=== PATIENT | female | born 1950 | race Caucasian/White ===

== ENCOUNTER 2016-12-12 06:06 | Day surgery (SDC) | payer MEDICARE, OTHER ==
--- NOTE | ~2016-12-12 | EGD ---
EGD REPORT [facility] [place] [address] [place] [id number] NAME: DAVID ALBERT : [birth year] STATUS : REG [facility]#: [id number] AGE: 66 ADM/REG DATE : 12/12/16 MR#: [id number] REPORT SERV DATE: 12/12/16 DICTATED BY: DATE: REPORT STATUS : Draft TRANSCRIBED BY: [employer] DATE: 12/12/16 [facility] Patient Name: David Albert Date of : 1950 Attending MD: EFRAIN DE LUNA MD Procedure Date No Time: 12/12/2016 Procedure: Upper GI endoscopy Indications: Dysphagia Referring MD: MACHO DEL RIO MD Medicines: Monitored Anesthesia Care Complications: No immediate complications. Procedure: Pre-Anesthesia Assessment: - ASA Grade Assessment: III - A patient with severe systemic disease. After obtaining informed consent, the endoscope was passed under direct vision. Throughout the procedure, the patient's blood pressure, pulse, and oxygen saturations were monitored continuously. The GIF [id number] was introduced through the mouth, and advanced to the third part of duodenum. The upper GI endoscopy was accomplished without difficulty. The patient tolerated the procedure well. 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 LA Grade B (one or more mucosal breaks greater than 5 mm, not extending between the tops of two mucosal folds) esophagitis was found at the gastroesophageal junction. The Z-line was irregular and was found 38 cm from the incisors. Biopsies were taken with a cold forceps for histology. A benign-appearing, intrinsic mild stenosis measuring less than one cm (in length) was found 38 cm from the incisors and was traversed. Biopsies were taken with a cold forceps for histology. A guidewire was placed and the scope was withdrawn. Dilation was performed with a Savary dilator with no resistance at 54 Fr. A 3 cm hiatus hernia was present. Localized moderate inflammation characterized by erosions was found in the gastric antrum. Biopsies were taken with a cold forceps for Helicobacter pylori testing. No other significant abnormalities were identified in a careful examination of the stomach. There is no endoscopic evidence of ulceration or varices in the entire examined stomach. The examined duodenum was normal. EGD REPORT [address] [place]. [address] NAME: DAVID ALBERT : [birth year] [place]US [place] [facility] [place] [id number] AGE: 66 ADM/REG DATE : 12/12/16 MR#: [id number] REPORT SERV DATE: 12/12/16 DICTATED BY: DATE: REPORT STATUS : Draft TRANSCRIBED BY: [employer] DATE: 12/12/16 There is no endoscopic evidence of inflammation, mucosal abnormalities or ulceration in the entire examined duodenum. The cardia and gastric fundus were normal on retroflexion. Impression: - Ectopic gastric mucosa in the upper third of the esophagus. - LA Grade B reflux esophagitis. - Z-line irregular, 38 cm from the incisors. Biopsied. - Benign-appearing esophageal stricture. Biopsied. Dilated. - Hiatus hernia. - Acute gastritis. Biopsied. - Normal examined duodenum. Recommendation: - Patient has a contact number available for emergencies. The signs and symptoms of potential delayed complications were discussed with the patient. Return to normal activities tomorrow. Written discharge instructions were provided to the patient. - Return to previous diet. - Discharge patient to home. - Continue present medications. - Use Protonix (pantoprazole) 40 mg PO daily daily. - Stop Advil which is causing early ulcers in setting of aspirin treatment. - Await pathology results. 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 All rights reserved. EGD REPORT [facility] [place] [address] [place]. [address] NAME: DAVID ALBERT : [birth year] [place]US [place] [facility] [place] [id number] AGE: 66 ADM/REG DATE : 12/12/16 MR#: [id number] REPORT SERV DATE: 12/12/16 DICTATED BY: DATE: REPORT STATUS : Draft TRANSCRIBED BY: [employer] DATE: 12/12/16 The codes documented in this report are preliminary and upon feed weigher review may be revised to meet current compliance requirements. EFRAIN DE LUNA MD 12/12/2016 7:46 AM This report has been signed electronically. Number of Addenda: 0 Note Initiated On: 12/12/2016 7:26 AM Scope Withdrawal Time 0 hours 0 minutes [address] [place] [id number]
[~2016-12-12 06:06] MED LIST: ADVIL PO; ALBUTEROL0.083 % INH; ASAB PO; SYN1 PO; TOPXL25 PO; XOPEN0.5ML INH
== END 2016-12-12 23:59 | disposition home or self-care (01) ==
LOC: DMU 06:06
PROVIDERS: Internal Medicine Gastroenterology
PROC: 0DB58ZX Excision of Esophagus, Via Natural or Artificial Opening Endoscopic, Diagnostic (ICD-10-PCS; 2016-12-12)
PROC: 0D758ZZ Dilation of Esophagus, Via Natural or Artificial Opening Endoscopic (ICD-10-PCS; principal; 2016-12-12 07:30)
PROC: 0DB68ZX Excision of Stomach, Via Natural or Artificial Opening Endoscopic, Diagnostic (ICD-10-PCS; 2016-12-12 07:30)
DX: K29.00 Acute gastritis without bleeding (principal); K22.2 Esophageal obstruction; K44.9 Diaphragmatic hernia without obstruction or gangrene; K21.0 Gastro-esophageal reflux disease with esophagitis; K22.8 Other specified diseases of esophagus; J45.909 Unspecified asthma, uncomplicated; E03.9 Hypothyroidism, unspecified; G43.909 Migraine, unspecified, not intractable, without status migrainosus; Z86.74 Personal history of sudden cardiac arrest; Z87.442 Personal history of urinary calculi; Z88.5 Allergy status to narcotic agent; Z88.6 Allergy status to analgesic agent; Z88.8 Allergy status to other drugs, medicaments and biological substances; Z90.710 Acquired absence of both cervix and uterus
CPT/HCPCS: 88305; 88313